=== PATIENT | female | born 1980 | race Asian ===

== ENCOUNTER 2017-02-20 21:46 | Emergency (ER) | payer BC ==
[2017-02-20 22:01] VITALS: BP 108/69
[2017-02-20] MEDS ORDERED: Sodium Chloride 0.9% 1,000 ML IV ONE (22:06)
[2017-02-20] MEDS ORDERED: Ondansetron 4 MG/2 ML SDV IV ONE (22:06)
--- NOTE | 2017-02-20 22:24 | EDM.PDOC ---
ED HPI GI/ABDOMINAL - General Chief Complaint: Gastrointestinal Problem Stated Complaint: VOMITING,FEVER,DIARREA Time Seen by Provider: 02/20/17 22:15 Source of Information: Reports: Patient History Limitations: Reports: No limitations - History of Present Illness INITIAL COMMENTS - FREE TEXT/NARRATIVE: This 37 yo female patient reports to the ED with abdominal pains, nausea/ vomiting and diarrhea. The patient reports she vomited 2 times this afternoon and had 4-5 episodes of diarrhea. The patient has no previous history of similar symptoms. 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 [No Known Home Meds] 02/20/17 [History] Past Medical History - Infectious Disease History Infectious Disease History: Reports: Measles - Past Surgical History GI Surgical History: Reports: Appendectomy Social & Family History - Tobacco Use Smoking Status *Q: Never Smoker Second Hand Smoke Exposure: No - Caffeine Use Caffeine Use: Reports: Coffee, Soda, Tea - Recreational Drug Use Recreational Drug Use: No ED ROS GENERAL - Review of Systems Review Of Systems: ROS reveals no pertinent complaints other than HPI. ED EXAM, GI/ABD - Physical Exam Exam: See Below General Appearance: alert, WD/WN, moderate distress Eyes: bilateral: normal appearance, EOMI Ears: normal external exam, normal canal, hearing grossly normal, other (fluid behind right TM) Nose: normal inspection, normal mucosa, no blood Throat/Mouth: Normal inspection, Normal lips, Normal teeth, Normal gums, Normal oropharynx, Normal voice, No airway compromise Head: atraumatic, normocephalic Neck: normal inspection, supple, non-tender, full range of motion Respiratory/Chest: no respiratory distress, lungs clear, normal breath sounds, no accessory muscle use, chest non-tender Cardiovascular: normal peripheral pulses, regular rate, rhythm, no edema, no gallop, no JVD, no murmur, no rub GI/Abdominal: normal bowel sounds, soft, non tender, no organomegaly, no distention, no abnormal bruit, no mass (Female) Exam: Deferred Rectal (Female) Exam: Deferred Back Exam: normal inspection, full range of motion, NT Extremities: normal inspection, normal range of motion, non-tender, normal capillary refill, no pedal edema Neurological: alert, oriented, CN II-XII intact, normal cognition, normal gait, normal reflexes, no motor/sensory deficits Psychiatric: normal affect, normal mood Skin Exam: Warm, Dry, Intact, Normal color, No rash Lymphatic: no adenopathy Course - Vital Signs Last Recorded V/S: Last Vital Signs Temp 36.7 C 02/20/17 21:53 Pulse 89 02/20/17 21:53 Resp 17 02/20/17 21:53 BP 108/69 02/20/17 21:53 Pulse Ox 96 02/20/17 21:53 - Orders/Labs/Meds Labs: Laboratory Tests 02/20/17 02/20/17 Range/Units 22:10 22:10 WBC 10.2 H (5.0-10.0) 10^3/uL RBC 5.22 (4.2-5.4) 10^6/uL Hgb 15.8 (12.0-16.0) g/dL Hct 45.2 (37.0-47.0) % MCV 86.6 (80-100) fL MCH 30.3 (27.0-34.0) pg MCHC 35.0 (33.0-35.0) g/dL Plt Count 219 (150-450) 10^3/uL Neut % (Auto) 83.7 H (42.2-75.2) % Lymph % (Auto) 5.7 L (20.5-50.1) % [place] % (Auto) 9.8 H (2-8) % Eos % (Auto) 0.7 L (1.0-3.0) % Baso % (Auto) 0.1 (0.0-1.0) % Sodium 134 L (135-145) mmol/L Potassium 3.4 L (3.6-5.0) mmol/L Chloride 101 (101-111) mmol/L Carbon Dioxide 22.0 (21.0-31.0) mmol/L Anion Gap 14.4 BUN 13 (7-18) mg/dL Creatinine 0.8 (0.6-1.3) mg/dL Est Cr Clr Drug Dosing 79.41 mL/min Estimated GFR (MDRD) > 60 BUN/Creatinine Ratio 16.25 Glucose 107 H (74-105) mg/dL Calcium 9.0 (8.4-10.2) mg/dl Total Bilirubin 0.6 (0.2-1.0) mg/dL AST 31 (10-42) IU/L ALT 26 (10-60) IU/L Alkaline Phosphatase 50 (42-121) IU/L Total Protein 8.9 H (6.7-8.2) g/dl Albumin 4.8 (3.2-5.5) g/dl Globulin 4.1 Albumin/Globulin Ratio 1.17 Meds: Medications Discontinued Medications Generic Name Dose Route Start Last Admin Trade Name Freq PRN Reason Stop Dose Admin Sodium Chloride 1,000 mls @ 999 mls/hr 02/20/17 22:06 02/20/17 22:20 Normal Saline IV 02/20/17 23:06 999 mls/hr .BOLUS ONE Administration Ketorolac Tromethamine 30 mg 02/20/17 22:44 02/20/17 22:54 Toradol IVPUSH 02/20/17 22:45 30 mg ONETIME ONE Administration Ondansetron HCl 4 mg 02/20/17 22:06 02/20/17 22:21 Zofran IV 02/20/17 22:07 4 mg ONETIME ONE Administration - Re-Assessments/Exams Free Text/Narrative Re-Assessment/Exam: 02/20/17 22:46 The patient was advised of the lab results. The patient reports she is feeling better after the IV fluids and the IV Zofran. The patient was given IV Toradol for her headache. Departure - Departure Time of Disposition: 23:30 Disposition: Home, Self-Care 01 Condition: fair Clinical Impression: Gastroenteritis Instructions: Viral Gastroenteritis, Adult, [id number] Forms: ED Department Discharge Care Plan Goals: The patient was advised of the examination and lab results during the visit. The patient was given IV fluids (for dehydration), IV Zofran (4 mg) (for nausea ) and IV Toradol (30 mg) (for headache) while in the ED. The patient was discharged with Zofran ODT (4 mg) #2 to take 1 by mouth every 6 hours as needed for nausea and a script for Zofran ODT #20 to take 1 by mouth every 6 hours as needed for nausea. The patient should stick to a BRAT diet (bananas, rice, applesauce and rice) with small frequent sips of fluids over the next 48 hours. If the patient has any additional symptoms or concerns, the patient should follow-up with her primary care facility or return to the emergency department.
[2017-02-20 22:37] LABS: CHLORIDE,CL 101 mmol/L (101-111); SODIUM,NA 134 mmol/L (135-145)
[2017-02-20] MEDS ORDERED: Ketorolac 30 MG/ML SDV IVPUSH ONE (22:44)
[2017-02-20] MEDS ORDERED: Ondansetron 4 MG Tab.DIS PO ONE (23:47)
[2017-02-20] MEDS ORDERED: Ondansetron 4 MG Tab.DIS ONE (23:47)
== END 2017-02-20 23:55 | disposition home or self-care (01) ==
LOC: DL.ED 21:46
DX: K52.9 Noninfective gastroenteritis and colitis, unspecified (principal); Z90.49 Acquired absence of other specified parts of digestive tract
CPT/HCPCS: 36415; 80053; 85025; 87804; 96365; 96375; 99284; A9270; J1885; J2405; J7030

== ENCOUNTER 2017-08-18 06:37 | Emergency (ER) | payer OTHER, BC ==
[2017-08-18 08:45] VITALS: BP 127/75
== END 2017-08-18 09:07 | disposition home or self-care (01) ==
LOC: DL.ED 06:37 → EDSTATUS 08:32 → DL.ED 09:07
DX: Z53.21 Procedure and treatment not carried out due to patient leaving prior to being seen by health care provider (principal)
CPT/HCPCS: 36415; 86706; 86803; 87389; 99283

== ENCOUNTER 2019-12-09 06:49 | Emergency (ER) | payer BC ==
[2019-12-09] MEDS ORDERED: Meclizine 12.5 MG Tab PO ONE (06:55)
[2019-12-09] MEDS ORDERED: Sodium Chloride 0.9% 1,000 ML IV ONE (06:55)
[2019-12-09] MEDS ORDERED: GI Cocktail Oral Solution 30 ML PO ONE (06:55)
[2019-12-09] MEDS ORDERED: Ondansetron 4 MG/2 ML SDV IVPUSH ONE (06:55)
[2019-12-09 07:00] VITALS: BP 116/72; PULSE 71
--- NOTE | 2019-12-09 07:10 | EDM.PDOC ---
<Jeferson Martinez - Last Filed: 12/09/19 06:58> ED HPI GENERAL MEDICAL PROBLEM - General Chief Complaint: General Stated Complaint: DIZZY/LOW HEART RATE Time Seen by Provider: 12/09/19 06:58 Source of Information: Reports: Patient History Limitations: Reports: No Limitations - History of Present Illness INITIAL COMMENTS - FREE TEXT/NARRATIVE: woke up with room spinning dizziness nauseous and vomited x1. presently feeling better. c/o sore throat from vomiting. - Related Data Allergies Allergy/AdvReac Type Severity Reaction Status Date / Time No Known Allergies Allergy Verified 12/09/19 07:00 Home Meds: Home Meds . [No Known Home Meds] 02/20/17 [History] Past Medical History - Infectious Disease History Infectious Disease History: Reports: Measles - Past Surgical History GI Surgical History: Reports: Appendectomy Social & Family History - Family History Family Medical History: Noncontributory - Caffeine Use Caffeine Use: Reports: Coffee, Soda ED ROS GENERAL - Review of Systems Review Of Systems: Comprehensive ROS is negative, except as noted in HPI. ED EXAM, GENERAL - Physical Exam Exam: See Below Exam Limited By: No Limitations General Appearance: Alert, WD/WN, Mild Distress, Other Eye Exam: Bilateral Eye: PERRL (pupils ER @ 4mm) Ears: Hearing Grossly Normal Throat/Mouth: Normal Voice, No Airway Compromise Head: Atraumatic Neck: Non-Tender, Full Range of Motion Respiratory/Chest: No Respiratory Distress Cardiovascular: Regular Rate, Rhythm GI/Abdominal: Soft, Non-Tender Neurological: Alert, Oriented, Normal Cognition, Normal Gait, No Motor/Sensory Deficits Psychiatric: Normal Affect, Normal Mood Skin Exam: Warm, Dry, Normal Color Lymphatic: No Adenopathy Course - Vital Signs Last Recorded V/S: Last Vital Signs Temp 96.9 F 12/09/19 06:55 Pulse 71 12/09/19 06:55 Resp 16 12/09/19 06:55 BP 116/72 12/09/19 06:55 Pulse Ox 100 12/09/19 06:55 - Orders/Labs/Meds Labs: Laboratory Tests 12/09/19 12/09/19 Range/Units 07:10 07:10 WBC 8.5 (5.0-10.0) 10^3/uL RBC 4.65 (4.2-5.4) 10^6/uL Hgb 14.3 (12.0-16.0) g/dL Hct 41.7 (37.0-47.0) % MCV 89.7 (80-100) fL MCH 30.8 (27.0-34.0) pg MCHC 34.3 (33.0-35.0) g/dL Plt Count 220 (150-450) 10^3/uL Neut % (Auto) 74.0 (42.2-75.2) % Lymph % (Auto) 16.7 L (20.5-50.1) % [place] % (Auto) 6.7 (2-8) % Eos % (Auto) 2.2 (1.0-3.0) % Baso % (Auto) 0.4 (0.0-1.0) % Sodium 140 (135-145) mmol/L Potassium 3.5 L (3.6-5.0) mmol/L Chloride 107 (101-111) mmol/L Carbon Dioxide 23.0 (21.0-31.0) mmol/L Anion Gap 13.5 BUN 18 (7-18) mg/dL Creatinine 0.8 (0.6-1.3) mg/dL Est Cr Clr Drug Dosing 76.15 mL/min Estimated GFR (MDRD) > 60 BUN/Creatinine Ratio 22.50 Glucose 105 (74-105) mg/dL Calcium 9.3 (8.4-10.2) mg/dl Total Bilirubin 0.6 (0.2-1.0) mg/dL AST 25 (10-42) IU/L ALT 27 (10-60) IU/L Alkaline Phosphatase 40 L (42-121) IU/L Total Protein 7.2 (6.7-8.2) g/dl Albumin 4.4 (3.2-5.5) g/dl Globulin 2.8 Albumin/Globulin Ratio 1.57 Meds: Medications Discontinued Medications Generic Name Dose Route Start Last Admin Trade Name Freq PRN Reason Stop Dose Admin Al Hydroxide/Mg Hydroxide 30 ml 12/09/19 06:55 12/09/19 07:15 Gi Cocktail PO 12/09/19 06:56 30 ml ONETIME ONE Administration Sodium Chloride 1,000 mls @ 999 mls/hr 12/09/19 06:55 12/09/19 07:15 Normal Saline IV 12/09/19 07:55 999 mls/hr .BOLUS ONE Administration Meclizine HCl 12.5 mg 12/09/19 06:55 12/09/19 07:15 Antivert PO 12/09/19 06:56 12.5 mg ONETIME ONE Administration Ondansetron HCl 4 mg 12/09/19 06:55 12/09/19 07:15 Zofran IVPUSH 12/09/19 06:56 4 mg ONETIME ONE Administration Departure - Departure Disposition: Home, Self-Care 01 Clinical Impression: Hypokalemia BPV (benign positional vertigo) Qualifiers: Laterality: unspecified laterality Qualified Code(s): H81.10 - Benign paroxysmal vertigo, unspecified ear - Discharge Information Instructions: Potassium Content of Foods, Benign Positional Vertigo Forms: ED Department Discharge Additional Instructions: Follow up with PCP. push fluids and rest. Sepsis Event Note - Focused Exam Vital Signs: Vital Signs Temp Pulse Resp BP Pulse Ox 12/09/19 06:55 96.9 F 71 16 116/72 100 <Diandra Gonzalez - Last Filed: 12/09/19 09:33> Departure - Departure Time of Disposition: 09:20 Condition: Fair - Discharge Information *PRESCRIPTION DRUG MONITORING PROGRAM REVIEWED*: Not Applicable *COPY OF PRESCRIPTION DRUG MONITORING REPORT IN PATIENT NILDA: Not Applicable Sepsis Event Note - Focused Exam Date Exam was Performed: 12/09/19 Time Exam was Performed: 09:20
[2019-12-09 07:48] LABS: ANION GAP 13.5; CHLORIDE,CL 107 mmol/L (101-111); SODIUM,NA 140 mmol/L (135-145)
== END 2019-12-09 09:35 | disposition home or self-care (01) ==
LOC: DL.ED 06:49
DX: H81.10 Benign paroxysmal vertigo, unspecified ear (principal); E87.6 Hypokalemia
CPT/HCPCS: 36415; 80053; 85025; 87804; 96361; 96374; 99284; A9270; J2405; J7030

== ENCOUNTER 2021-05-23 06:28 | Emergency (ER) | payer OTHER, BC ==
[2021-05-23 06:50] VITALS: BP 128/75; PULSE 92
[2021-05-23] MEDS ORDERED: Orphenadrine 60 MG/2 ML Inj IM ONE (06:54)
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
== END 2021-05-23 07:35 | disposition home or self-care (01) ==
LOC: DL.ED 06:28
DX: S20.211A Contusion of right front wall of thorax, initial encounter (principal); S50.02XA Contusion of left elbow, initial encounter; S50.01XA Contusion of right elbow, initial encounter; V49.10XA Passenger injured in collision with unspecified motor vehicles in nontraffic accident, initial encounter; Y92.410 Unspecified street and highway as the place of occurrence of the external cause
CPT/HCPCS: 71101; 96372; 99283; J2360